=== PATIENT | male | born 1965 | race Caucasian/White ===

== ENCOUNTER → 2017-05-21 | Outpatient (REF) | payer OTHER ==
[~2017-05-21] MED LIST: NAPR500T3 PO
[2017-05-21 13:51] LABS: MEAN CORPUSCULAR HEMOGLOBIN 29.5 pg (27.0-33.0); MEAN CORPUSCULAR HGB CONC 31.5 g/dl (32.0-36.5); MEAN CORPUSCULAR VOLUME 93.9 fl (80.0-96.0); PLATELET COUNT, AUTOMATED 122 10^3/uL (150-450); RED CELL DISTRIBUTION WIDTH 13.6 % (11.5-14.5); WHITE BLOOD COUNT 7.5 10^3/uL (4.0-10.0)
[2017-05-21 14:05] LABS: ALBUMIN 3.5 GM/DL (3.2-5.2); ALBUMIN/GLOBULIN RATIO 1.06 (1.00-1.93); ALKALINE PHOSPHATASE 98 U/L (45-117); ALT/SGPT 22 U/L (12-78); ANION GAP 7 MEQ/L (8-16); AST/SGOT 10 U/L (7-37); BILIRUBIN,TOTAL 0.4 MG/DL (0.2-1.0); BLOOD UREA NITROGEN 10 MG/DL (7-18); CALCIUM LEVEL 8.5 MG/DL (8.5-10.1); CARBON DIOXIDE LEVEL 28 MEQ/L (21-32); CHLORIDE LEVEL 106 MEQ/L (98-107); CHOLESTEROL LEVEL 197 MG/DL (<200); CREATININE FOR GFR 0.82 MG/DL (0.70-1.30); FREE T4 1.15 NG/DL (0.76-1.46); GLOMERULAR FILTRATION RATE > 60.0 (>56); GLUCOSE, FASTING 123 MG/DL (70-105); POTASSIUM SERUM 4.3 MEQ/L (3.5-5.1); SODIUM LEVEL 141 MEQ/L (136-145); TOTAL PROTEIN 6.8 GM/DL (6.4-8.2); TRIGLYCERIDES LEVEL 199 MG/DL (<150)
== END ==
LOC: M SFHCADAM 08:12
PROVIDERS: ATTEND Physician Assistant
DX: R73.03 Prediabetes (principal); Z72.0 Tobacco use; E78.00 Pure hypercholesterolemia, unspecified; E66.01 Morbid (severe) obesity due to excess calories

== ENCOUNTER 2017-07-21 10:21 | Day surgery (SDC) | payer OTHER ==
[2017-07-21] MEDS: NS 1,000 ML IV (11:49)
[2017-07-21] MEDS ORDERED: PROPOFOL 200 MG/20 ML VIAL As Ordered ×2 (12:12)
== END 2017-07-21 12:59 | disposition home or self-care (01) ==
LOC: M OPP 10:21
DX: Z12.11 Encounter for screening for malignant neoplasm of colon (principal); D12.3 Benign neoplasm of transverse colon; K63.5 Polyp of colon; K57.30 Diverticulosis of large intestine without perforation or abscess without bleeding; K64.0 First degree hemorrhoids; I10 Essential (primary) hypertension; E78.00 Pure hypercholesterolemia, unspecified; F17.210 Nicotine dependence, cigarettes, uncomplicated; Z79.899 Other long term (current) drug therapy
CPT/HCPCS: 45385

== ENCOUNTER → 2017-09-08 | Outpatient (REF) | payer OTHER ==
[2017-09-08 14:00] LABS: ALBUMIN 3.5 GM/DL (3.2-5.2); ALBUMIN/GLOBULIN RATIO 1.03 (1.00-1.93); ALKALINE PHOSPHATASE 118 U/L (45-117); ALT/SGPT 21 U/L (12-78); ANION GAP 8 MEQ/L (8-16); AST/SGOT 12 U/L (7-37); BILIRUBIN,TOTAL 0.5 MG/DL (0.2-1.0); BLOOD UREA NITROGEN 18 MG/DL (7-18); CALCIUM LEVEL 8.4 MG/DL (8.5-10.1); CARBON DIOXIDE LEVEL 26 MEQ/L (21-32); CHLORIDE LEVEL 107 MEQ/L (98-107); CHOLESTEROL LEVEL 128 MG/DL (<200); CHOLESTEROL RISK RATIO 2.909 (<5); CREATININE FOR GFR 0.75 MG/DL (0.70-1.30); GLOMERULAR FILTRATION RATE > 60.0 (>56); GLUCOSE, FASTING 115 MG/DL (70-100); HDL CHOLESTEROL 44 MG/DL (>40); LDL CHOLESTEROL 65.6 MG/DL (<100); NON-HDL-C 84 MG/DL; POTASSIUM SERUM 4.2 MEQ/L (3.5-5.1); SODIUM LEVEL 141 MEQ/L (136-145); TOTAL PROTEIN 6.9 GM/DL (6.4-8.2); TRIGLYCERIDES LEVEL 92 MG/DL (<150)
[2017-09-08 14:19] LABS: ESTIMATED AVERAGE GLUCOSE 140 MG/DL (60-110); HEMOGLOBIN A1c 6.5 %
== END ==
LOC: M SFHCADAM 08:34
DX: E78.00 Pure hypercholesterolemia, unspecified (principal); R73.09 Other abnormal glucose

== ENCOUNTER 2017-11-04 11:01 | Emergency (ER) | payer OTHER ==
[2017-11-04 10:52] LABS: BASO # 0.1 10^3/uL (0.0-0.2); BASO % 0.7 % (0.0-1.0); EOS # 0.3 10^3/uL (0.0-0.50); EOS % 4.3 % (0.0-3.0); HEMATOCRIT 43.6 % (42.0-52.0); IMMATURE GRANULOCYTE % 0.3 % (0-3.0); LYMPH # 2.7 10^3/uL (1.5-4.5); LYMPH % 37.4 % (24.0-44.0); MEAN CORPUSCULAR HEMOGLOBIN 29.6 pg (27.0-33.0); MEAN CORPUSCULAR HGB CONC 32.1 g/dl (32.0-36.5); MEAN CORPUSCULAR VOLUME 92.2 fl (80.0-96.0); MONO # 0.7 10^3/uL (0.0-0.8); MONO % 9.1 % (0.0-5.0); NEUTROPHILS # 3.5 10^3/uL (1.8-7.7); NEUTROPHILS % 48.2 % (36.0-66.0); PLATELET COUNT, AUTOMATED 123 10^3/uL (150-450); RED BLOOD COUNT 4.73 10^6/uL (4.30-6.10); RED CELL DISTRIBUTION WIDTH 13.7 % (11.5-14.5); WHITE BLOOD COUNT 7.2 10^3/uL (4.0-10.0)
[2017-11-04 11:12] LABS: LACTIC ACID SEPSIS PROTOCOL 1.1 MMOL/L (0.4-2.0)
[2017-11-04 11:12] LABS: ALBUMIN 3.3 GM/DL (3.2-5.2); ALBUMIN/GLOBULIN RATIO 0.97 (1.00-1.93); ALKALINE PHOSPHATASE 123 U/L (45-117); ALT/SGPT 25 U/L (12-78); ANION GAP 7 MEQ/L (8-16); AST/SGOT 15 U/L (7-37); BILIRUBIN,DIRECT < 0.1 MG/DL (0.0-0.2); BILIRUBIN,TOTAL 0.4 MG/DL (0.2-1.0); BLOOD UREA NITROGEN 11 MG/DL (7-18); CALCIUM LEVEL 7.7 MG/DL (8.5-10.1); CARBON DIOXIDE LEVEL 25 MEQ/L (21-32); CHLORIDE LEVEL 110 MEQ/L (98-107); CPK CREATINE PHOSPHOKINASE 87 U/L (39-308); CREATININE FOR GFR 0.84 MG/DL (0.70-1.30); FREE T4 1.15 NG/DL (0.76-1.46); GLOMERULAR FILTRATION RATE > 60.0 (>56); GLUCOSE, FASTING 133 MG/DL (70-100); POTASSIUM SERUM 4.3 MEQ/L (3.5-5.1); SODIUM LEVEL 142 MEQ/L (136-145); TOTAL PROTEIN 6.7 GM/DL (6.4-8.2); TROPONIN I < 0.02 NG/ML (< 0.10)
[2017-11-04 11:18] LABS: CK-MB VALUE MASS < 1.0 NG/ML (<3.6); MB/CK RELATIVE INDEX 1.14 (< OR =4)
[2017-11-04] MEDS ORDERED: ISOVUE-370 76% 100ML VIAL (Q9967) As Ordered (11:22)
[2017-11-04] MEDS: NS 500 ML IV (12:00)
== END 2017-11-04 13:43 | disposition home or self-care (01) ==
LOC: M ED 11:01
DX: R42 Dizziness and giddiness (principal); E11.9 Type 2 diabetes mellitus without complications; I10 Essential (primary) hypertension; F17.200 Nicotine dependence, unspecified, uncomplicated; Z79.84 Long term (current) use of oral hypoglycemic drugs; Z79.899 Other long term (current) drug therapy
CPT/HCPCS: Q9967

== ENCOUNTER → 2017-12-02 | Outpatient (CLI) | payer OTHER | LOC: M RAD 07:06 | DX: R41.0 Disorientation, unspecified (principal); I67.82 Cerebral ischemia | CPT/HCPCS: 70553 ==

== ENCOUNTER → 2017-12-02 | Outpatient (CLI) | payer OTHER ==
[~2017-12-02] MED LIST changes: -NAPR500T3 PO; +PROHANCE 279.3MG/ML 15ML VIAL (A9576) As Ordered; +PROHANCE 279.3MG/ML 5ML VIAL (A9576) As Ordered
== END ==
LOC: M RAD 07:11
DX: R42 Dizziness and giddiness (principal)
CPT/HCPCS: A9576

== ENCOUNTER → 2018-02-03 | Outpatient (REF) | payer OTHER ==
[2018-02-03 12:46] LABS: ANION GAP 5 MEQ/L (8-16); BLOOD UREA NITROGEN 10 MG/DL (7-18); CALCIUM LEVEL 8.1 MG/DL (8.5-10.1); CARBON DIOXIDE LEVEL 28 MEQ/L (21-32); CHLORIDE LEVEL 107 MEQ/L (98-107); CREATININE FOR GFR 0.77 MG/DL (0.70-1.30); GLOMERULAR FILTRATION RATE > 60.0 (>56); GLUCOSE, FASTING 120 MG/DL (70-100); POTASSIUM SERUM 4.4 MEQ/L (3.5-5.1); SODIUM LEVEL 140 MEQ/L (136-145)
[2018-02-03 13:29] LABS: ESTIMATED AVERAGE GLUCOSE 137 MG/DL (60-110); HEMOGLOBIN A1c 6.4 %
== END ==
LOC: M SFHCADAM 07:18
DX: R73.09 Other abnormal glucose (principal); E78.00 Pure hypercholesterolemia, unspecified; R73.03 Prediabetes; I11.9 Hypertensive heart disease without heart failure
CPT/HCPCS: 83036

== ENCOUNTER 2018-04-22 08:13 | Emergency (ER) | payer OTHER ==
[2018-04-22] MEDS: NS 500 ML IV (08:57)
[2018-04-22 09:10] LABS: BASO # 0.1 10^3/uL (0.0-0.2); BASO % 0.7 % (0.0-1.0); EOS # 0.2 10^3/uL (0.0-0.50); EOS % 2.8 % (0.0-3.0); HEMATOCRIT 42.8 % (42.0-52.0); HEMOGLOBIN 13.8 g/dl (13.5-17.5); IMMATURE GRANULOCYTE % 1.1 % (0-3.0); LYMPH # 2.2 10^3/uL (1.5-4.5); LYMPH % 27.5 % (24.0-44.0); MEAN CORPUSCULAR HGB CONC 32.2 g/dl (32.0-36.5); MONO # 0.7 10^3/uL (0.0-0.8); MONO % 8.3 % (0.0-5.0); NEUTROPHILS # 4.8 10^3/uL (1.8-7.7); NEUTROPHILS % 59.6 % (36.0-66.0); PLATELET COUNT, AUTOMATED 119 10^3/uL (150-450); WHITE BLOOD COUNT 8.1 10^3/uL (4.0-10.0)
[2018-04-22] MEDS: LORazepam 2 MG/ML VIAL (J2060) IV (09:25)
[2018-04-22 09:34] LABS: ALBUMIN 3.5 GM/DL (3.2-5.2); ALBUMIN/GLOBULIN RATIO 0.95 (1.00-1.93); ALKALINE PHOSPHATASE 92 U/L (45-117); ALT/SGPT 28 U/L (12-78); ANION GAP 9 MEQ/L (8-16); AST/SGOT 19 U/L (7-37); BILIRUBIN,DIRECT 0.1 MG/DL (0.0-0.2); BILIRUBIN,TOTAL 0.4 MG/DL (0.2-1.0); BLOOD UREA NITROGEN 22 MG/DL (7-18); CALCIUM LEVEL 8.5 MG/DL (8.5-10.1); CARBON DIOXIDE LEVEL 23 MEQ/L (21-32); CHLORIDE LEVEL 109 MEQ/L (98-107); CK-MB VALUE MASS < 1.0 NG/ML (<3.6); CPK CREATINE PHOSPHOKINASE 75 U/L (39-308); CREATININE FOR GFR 0.95 MG/DL (0.70-1.30); GLOMERULAR FILTRATION RATE > 60.0 (>56); GLUCOSE, FASTING 100 MG/DL (70-100); LIPASE 109 U/L (73-393); MB/CK RELATIVE INDEX 1.33 (< OR =4); POTASSIUM SERUM 3.9 MEQ/L (3.5-5.1); SODIUM LEVEL 141 MEQ/L (136-145); TOTAL PROTEIN 7.2 GM/DL (6.4-8.2); TROPONIN I < 0.02 NG/ML (< 0.10)
== END 2018-04-22 13:56 | disposition home or self-care (01) ==
LOC: M ED 08:13
DX: R42 Dizziness and giddiness (principal); E11.9 Type 2 diabetes mellitus without complications; I10 Essential (primary) hypertension; E78.5 Hyperlipidemia, unspecified; R90.82 White matter disease, unspecified; Z79.899 Other long term (current) drug therapy; Z79.84 Long term (current) use of oral hypoglycemic drugs
CPT/HCPCS: J2060

== ENCOUNTER 2018-07-09 22:29 | Emergency (ER) | payer OTHER ==
[~2018-07-09] VITALS: Ht 182.9 cm; Wt 159.1 kg
[~2018-07-09 22:29] MED LIST changes: +CHLO125TA PO; +LIPI10TA PO; +LISI-538 PO; +LISI10TA4 PO; +METF500T13 PO; +NAPR-885 PO; -PROHANCE 279.3MG/ML 15ML VIAL (A9576) As Ordered; -PROHANCE 279.3MG/ML 5ML VIAL (A9576) As Ordered; +VALI5TAB PO; +[UNRECOGNIZED DRUG - CODE] PO
[2018-07-09] MEDS ORDERED: BACL10TA2 PO (23:17)
[2018-07-09] MEDS ORDERED: KETO10TAB PO (23:17)
[2018-07-09] MEDS ORDERED: GABA-1171 PO (23:17)
[2018-07-09 23:35] VITALS: BP 124/66
[2018-07-09] MEDS ORDERED: BACLOFEN 10 MG TAB PO ONE (23:45)
[2018-07-12] MEDS ORDERED: BACL10TA8 PO (08:17)
[2018-07-12] MEDS ORDERED: ATOR40TA75 PO (08:17)
[2018-07-12] MEDS ORDERED: NORC1TAB4 PO (08:17)
[2018-07-12] MEDS ORDERED: GABA-843 PO (08:17)
[2018-07-12] MEDS ORDERED: KETO10TAB PO (08:17)
== END 2018-07-09 23:45 | disposition home or self-care (01) ==
LOC: M ED 22:29
DX: M54.31 Sciatica, right side (principal); M54.32 Sciatica, left side; E11.9 Type 2 diabetes mellitus without complications; I10 Essential (primary) hypertension; E78.5 Hyperlipidemia, unspecified; Z79.899 Other long term (current) drug therapy; Z79.84 Long term (current) use of oral hypoglycemic drugs

== ENCOUNTER 2018-07-10 23:11 | Emergency (ER) | payer OTHER ==
[~2018-07-10] VITALS: Ht 182.9 cm; Wt 159.1 kg
[2018-07-10 23:11] VITALS: BP 162/83
[~2018-07-10 23:11] MED LIST changes: +BACL10TA2 PO; +GABA-1171 PO; +KETO10TAB PO
[2018-07-11] MEDS ORDERED: NORCO 5/325MG TABLET (BULK FOR ED) PO ONE (00:15)
[2018-07-11] MEDS ORDERED: GABAPENTIN 300 MG CAP PO ONE (00:15)
[2018-07-11] MEDS ORDERED: NEUR300C PO (00:20)
[2018-07-11] MEDS ORDERED: NORCOTAB PO ×2 (00:20→00:21)
[2018-07-12] MEDS ORDERED: KETO10TAB PO (08:17)
[2018-07-12] MEDS ORDERED: ATOR40TA75 PO (08:17)
[2018-07-12] MEDS ORDERED: GABA-843 PO (08:17)
[2018-07-12] MEDS ORDERED: NORC1TAB4 PO (08:17)
[2018-07-12] MEDS ORDERED: BACL10TA8 PO (08:17)
== END 2018-07-11 00:31 | disposition home or self-care (01) ==
LOC: M ED 23:11
DX: M54.16 Radiculopathy, lumbar region (principal); M54.42 Lumbago with sciatica, left side; E66.9 Obesity, unspecified; I10 Essential (primary) hypertension; Z72.0 Tobacco use; Z79.899 Other long term (current) drug therapy

== ENCOUNTER → 2018-07-21 | Outpatient (REF) | payer OTHER ==
[~2018-07-21] MED LIST changes: +ATOR40TA75 PO; +BACL10TA8 PO; +GABA-843 PO; +NEUR300C PO; +NORC1TAB4 PO; +NORCOTAB PO
[2018-07-21 19:28] LABS: ALBUMIN 3.3 GM/DL (3.2-5.2); ALT/SGPT 22 U/L (12-78); BILIRUBIN,TOTAL 0.2 MG/DL (0.2-1.0); BLOOD UREA NITROGEN 19 MG/DL (7-18); CARBON DIOXIDE LEVEL 26 MEQ/L (21-32); CHLORIDE LEVEL 108 MEQ/L (98-107); CREATININE FOR GFR 0.93 MG/DL (0.70-1.30); GLOMERULAR FILTRATION RATE > 60.0 (>56); GLUCOSE, FASTING 113 MG/DL (70-100); SODIUM LEVEL 140 MEQ/L (136-145); TOTAL PROTEIN 6.5 GM/DL (6.4-8.2)
[2018-07-21 19:54] LABS: HEMOGLOBIN A1c 6.5 %
== END ==
LOC: M SFHCADAM 15:30
PROVIDERS: ATTEND Physician Assistant
DX: I10 Essential (primary) hypertension (principal); R73.03 Prediabetes

== ENCOUNTER → 2019-01-18 | Outpatient (CLI) | payer OTHER ==
[~2019-01-18] MED LIST changes: +HYDR-3715 PO; -NORC1TAB4 PO; +NORC1TAB7 PO; -NORCOTAB PO
--- NOTE | 2019-01-18 22:15 | REP ---
Clinical: Low back pain. Technique: AP, lateral, bilateral oblique and coned-down views of the lumbosacral spine. Findings: Advanced multilevel degenerative changes include endplate sclerosis, disc space narrowing, bridging osteophytes, and hypertrophic facet changes. No acute fracture / compression injury or subluxation. Impression: Advanced multilevel degenerative spondylosis. Electronically Signed by Antoine Hughes MD 01/18/2019 10:06 P
== END ==
LOC: M ADAMS 08:06
PROVIDERS: ATTEND Physician Assistant
DX: M79.605 Pain in left leg (principal); M51.36 Other intervertebral disc degeneration, lumbar region

== ENCOUNTER → 2019-07-26 | Outpatient (REF) | payer OTHER ==
[2019-07-26 13:10] LABS: MALB URINE SIEMENS 6.5 MG/L; MAU/CREAT RATIO 5.4 MCG/MG (0.0-30.0)
[2019-07-26 13:15] LABS: ALBUMIN 3.6 GM/DL (3.2-5.2); ALT/SGPT 16 U/L (12-78); BILIRUBIN,TOTAL 0.4 MG/DL (0.2-1.0); BLOOD UREA NITROGEN 17 MG/DL (7-18); CALCIUM LEVEL 8.2 MG/DL (8.5-10.1); CARBON DIOXIDE LEVEL 26 MEQ/L (21-32); CHLORIDE LEVEL 109 MEQ/L (98-107); CHOLESTEROL LEVEL 128 MG/DL (<200); CHOLESTEROL RISK RATIO 2.844 (<5); CREATININE FOR GFR 0.86 MG/DL (0.70-1.30); FREE T4 1.09 NG/DL (0.76-1.46); GLOMERULAR FILTRATION RATE > 60.0 (>56); GLUCOSE, FASTING 121 MG/DL (70-100); HDL CHOLESTEROL 45 MG/DL (>40); LDL CHOLESTEROL 66 MG/DL (<100); NON-HDL-C 83 MG/DL; POTASSIUM SERUM 4.3 MEQ/L (3.5-5.1); SODIUM LEVEL 141 MEQ/L (136-145); TOTAL PROTEIN 6.8 GM/DL (6.4-8.2); TRIGLYCERIDES LEVEL 86 MG/DL (<150)
[2019-07-26 14:53] LABS: HEMOGLOBIN A1c 6.3 %
== END ==
LOC: M SFHCADAM 08:57
PROVIDERS: ATTEND Physician Assistant
DX: M79.605 Pain in left leg (principal); I10 Essential (primary) hypertension; R73.09 Other abnormal glucose; E78.00 Pure hypercholesterolemia, unspecified

== ENCOUNTER → 2019-09-07 | Outpatient (REF) | payer OTHER, MEDICAID | LOC: M SFHCADAM 09:05 | PROVIDERS: ATTEND Family Medicine | DX: M10.9 Gout, unspecified (principal) ==

== ENCOUNTER 2020-03-26 20:25 | Emergency (ER) | payer OTHER, MEDICAID ==
[~2020-03-26] VITALS: Ht 185.4 cm; Wt 165.0 kg
[2020-03-26] MEDS ORDERED: INDA125TA (20:34)
[2020-03-26] MEDS ORDERED: ALLO100T (20:34)
[2020-03-26 21:15] LABS: HEMATOCRIT 42.2 % (42.0-52.0); HEMOGLOBIN 13.5 g/dl (13.5-17.5); MEAN CORPUSCULAR HEMOGLOBIN 30.1 pg (27.0-33.0); MEAN CORPUSCULAR VOLUME 94.2 fl (80.0-96.0); PLATELET COUNT, AUTOMATED 136 10^3/uL (150-450); RED BLOOD COUNT 4.48 10^6/uL (4.30-6.10)
[2020-03-26 21:40] LABS: BLOOD UREA NITROGEN 24 MG/DL (7-18); CALCIUM LEVEL 8.8 MG/DL (8.5-10.1); CARBON DIOXIDE LEVEL 27 MEQ/L (21-32); CHLORIDE LEVEL 108 MEQ/L (98-107); CREATININE FOR GFR 0.93 MG/DL (0.70-1.30); GLOMERULAR FILTRATION RATE > 60.0 (>56); GLUCOSE, FASTING 150 MG/DL (70-100); POTASSIUM SERUM 3.9 MEQ/L (3.5-5.1); SODIUM LEVEL 139 MEQ/L (136-145); URIC ACID 7.6 MG/DL (3.5-7.2)
--- NOTE | 2020-03-26 22:21 | REPVR ---
PROCEDURE INFORMATION: Exam: XR Right Wrist Exam date and time: 03/26/2020 9:56 PM Age: 54 years old Clinical indication: Pain; Wrist; Right; Additional info: Pain/dec rom TECHNIQUE: Imaging protocol: XR Right wrist. Views: 3 or more views. COMPARISON: CR Wrist, complete 09/14/2015 4:36 PM FINDINGS: Bones/joints: Degenerative changes in the radiocarpal joint with minimal degenerative changes in the triscaphe joint. Soft tissues: Normal. IMPRESSION: 1. Degenerative changes. 2. No acute findings. Electronically signed by: Peter Marroquin On 03/26/2020 22:21:04 PM
[2020-03-26] MEDS ORDERED: KETOROLAC TROMETHAMINE 10 MG TAB PO ONE (22:45)
[2020-03-26] MEDS ORDERED: INDO-16 PO (22:47)
[2020-03-26 22:58] VITALS: BP 156/74
== END 2020-03-26 22:59 | disposition home or self-care (01) ==
LOC: M ED 20:25
DX: M25.549 Pain in joints of unspecified hand (principal); E11.9 Type 2 diabetes mellitus without complications; E78.5 Hyperlipidemia, unspecified; I10 Essential (primary) hypertension; F17.200 Nicotine dependence, unspecified, uncomplicated; Z79.84 Long term (current) use of oral hypoglycemic drugs; Z79.899 Other long term (current) drug therapy

== ENCOUNTER → 2020-03-27 | Outpatient (REF) | payer OTHER, MEDICAID ==
[~2020-03-27] MED LIST changes: +ALLO100T; +INDA125TA; +INDO-16 PO
[2020-03-27 18:02] LABS: C REACTIVE PROTEIN QUANTITATIV 2.48 MG/DL (0.00-0.30); RHEUMATOID FACTOR QUANT < 10.0 IU/ML (<15.0)
[2020-03-30 14:05] LABS: ANTINUCLEAR ANTIBODIES DIRECT Negative (Negative); Lyme Disease IgG/IgM Antibodie <0.91 ISR (0.00-0.90); Lyme Disease IgM Ab Quantitati <0.80 index (0.00-0.79)
== END ==
LOC: M LABDRWAD 16:40
PROVIDERS: ATTEND Physician Assistant
DX: M10.9 Gout, unspecified (principal); E11.9 Type 2 diabetes mellitus without complications; M25.40 Effusion, unspecified joint

== ENCOUNTER → 2020-09-18 | Outpatient (REF) | payer MEDICAID, OTHER ==
[~2020-09-18] MED LIST changes: +GABA-282 PO; -GABA-843 PO; -LISI-538 PO; +LISI10TA22 PO; -LISI10TA4 PO; +LISI20TA33 PO
[2020-09-18 13:41] LABS: HEMATOCRIT 46.7 % (42.0-52.0); HEMOGLOBIN 14.6 g/dl (13.5-17.5); MEAN CORPUSCULAR HEMOGLOBIN 29.6 pg (27.0-33.0); MEAN CORPUSCULAR HGB CONC 31.3 g/dl (32.0-36.5); MEAN CORPUSCULAR VOLUME 94.7 fl (80.0-96.0); PLATELET COUNT, AUTOMATED 136 10^3/uL (150-450); RED BLOOD COUNT 4.93 10^6/uL (4.30-6.10)
[2020-09-18 14:23] LABS: MALB URINE SIEMENS 6.1 MG/L; MAU/CREAT RATIO 4.9 MCG/MG (0.0-30.0)
[2020-09-18 14:29] LABS: ALBUMIN 3.4 GM/DL (3.2-5.2); ALT/SGPT 21 U/L (12-78); BILIRUBIN,TOTAL 0.4 MG/DL (0.2-1.0); BLOOD UREA NITROGEN 18 MG/DL (7-18); CALCIUM LEVEL 8.9 MG/DL (8.5-10.1); CARBON DIOXIDE LEVEL 28 MEQ/L (21-32); CHLORIDE LEVEL 106 MEQ/L (98-107); CHOLESTEROL LEVEL 132 MG/DL (<200); CHOLESTEROL RISK RATIO 3.142 (<5); CREATININE FOR GFR 0.92 MG/DL (0.70-1.30); FOLATE 9.5 NG/ML; FREE T4 1.22 NG/DL (0.76-1.46); GLOMERULAR FILTRATION RATE > 60.0 (>56); GLUCOSE, FASTING 130 MG/DL (70-100); HDL CHOLESTEROL 42 MG/DL (>40); LDL CHOLESTEROL 72 MG/DL (<100); NON-HDL-C 90 MG/DL; POTASSIUM SERUM 4.3 MEQ/L (3.5-5.1); SODIUM LEVEL 139 MEQ/L (136-145); TOTAL 25(OH) VITAMIN D 13.2 NG/ML (30.0-100.0); TOTAL PROTEIN 6.7 GM/DL (6.4-8.2); TRIGLYCERIDES LEVEL 91 MG/DL (<150); VITAMIN B12 LEVEL 434 PG/ML
[2020-09-18 15:30] LABS: HEMOGLOBIN A1c 6.6 %
== END ==
LOC: M SFHCADAM 08:12
PROVIDERS: ATTEND Physician Assistant
DX: E66.01 Morbid (severe) obesity due to excess calories (principal); I11.9 Hypertensive heart disease without heart failure; R73.09 Other abnormal glucose; E78.00 Pure hypercholesterolemia, unspecified; F17.210 Nicotine dependence, cigarettes, uncomplicated; M10.9 Gout, unspecified; Z12.5 Encounter for screening for malignant neoplasm of prostate

== ENCOUNTER 2020-10-02 07:29 | Emergency (ER) | payer OTHER ==
[~2020-10-02] VITALS: Ht 182.9 cm; Wt 159.1 kg
[2020-10-02] MEDS ORDERED: ACETAMINOPHEN 500 MG TAB PO ONE (09:20)
[2020-10-02 10:14] VITALS: BP 136/80
[2020-10-02 10:37] LABS: RSV AMPLIFICATION NEGATIVE (NEGATIVE)
== END 2020-10-02 10:27 | disposition home or self-care (01) ==
LOC: M ED 07:29
DX: J02.9 Acute pharyngitis, unspecified (principal); R51.9 Headache, unspecified; M79.10 Myalgia, unspecified site; R05 Cough; I10 Essential (primary) hypertension; E11.9 Type 2 diabetes mellitus without complications; M10.00 Idiopathic gout, unspecified site; Z79.899 Other long term (current) drug therapy

== ENCOUNTER → 2020-11-19 | Outpatient (CLI) | payer OTHER ==
--- NOTE | 2020-11-20 08:43 | REP ---
INDICATION: NICOTINE DEPEND COMPARISON: 11/04/2017 TECHNIQUE: Axial noncontrast images from the thoracic inlet to the upper abdomen using low-dose lung screening technique (LDCT). FINDINGS: The bilateral lung lozano demonstrate very subtle emphysematous changes and minimal scattered age-related chronic changes. Two small 3 mm noncalcified nodules in the right mid lung zone (series 201; images 47, 49) remain unchanged compared with 2018. No new consolidation, suspicious nodule, or mass lesion. No effusion. No pneumothorax. Tracheobronchial tree is patent. IMPRESSION: Lung-RADS category 2. Chronic stable changes. Management recommendations include annual low-dose CT surveillance. <Electronically signed by Antoine Hughes > 11/20/20 0814
== END ==
LOC: M RAD 11:03
PROVIDERS: ATTEND Physician Assistant
DX: Z12.2 Encounter for screening for malignant neoplasm of respiratory organs (principal); F17.210 Nicotine dependence, cigarettes, uncomplicated; R91.8 Other nonspecific abnormal finding of lung field